=== PATIENT | female | born 1935 | race Caucasian/White ===

== ENCOUNTER 2016-11-04 10:19 | Emergency (ER) | payer MEDICARE ==
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
[2016-11-04] MEDS ORDERED: Acetaminophen TAB* 325 MG PO ONE (12:15)
[2016-11-04 12:33] VITALS: BP 143/64
--- NOTE | 2016-11-04 12:35 | RAD ---
INDICATION: Right hand injury. TECHNIQUE: 4 views of the right hand were obtained. FINDINGS: There is diffuse soft tissue swelling which is most prominent in the second finger and dorsal to the metacarpal heads. The second finger is flexed in all views. No fracture is seen. There is joint space narrowing hypertrophic and erosive change present in the distal interphalangeal joints most prominent in the second distal interphalangeal joint most consistent with an inflammatory arthropathy. IMPRESSION: 1. SOFT TISSUE SWELLING, NO FRACTURE IS SEEN. IF THE PATIENT'S SYMPTOMS PERSIST RECOMMEND FOLLOW-UP IMAGING. 2. FINDINGS MOST CONSISTENT WITH AN INFLAMMATORY ARTHROPATHY IN THE DISTAL INTERPHALANGEAL JOINTS.
== END 2016-11-04 13:20 | disposition home or self-care (01) ==
LOC: UCEAST 10:19
DX: S63.91XA Sprain of unspecified part of right wrist and hand, initial encounter (principal); W01.0XXA Fall on same level from slipping, tripping and stumbling without subsequent striking against object, initial encounter; Y93.K1 Activity, walking an animal; Y92.9 Unspecified place or not applicable; Y99.9 Unspecified external cause status; Z72.0 Tobacco use
CPT/HCPCS: 99212; A9270-GY; G0463

== ENCOUNTER 2017-03-30 18:07 | Emergency (ER) | payer SELFPAY ==
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
[2017-03-30] MEDS ORDERED: Ibuprofen TAB* 600 MG PO ONE (19:23)
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
[2017-03-30 20:15] VITALS: BP 147/73
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
== END 2017-03-30 20:32 | disposition home or self-care (01) ==
LOC: ED 18:07
DX: R07.9 Chest pain, unspecified (principal); M54.2 Cervicalgia; V89.2XXA Person injured in unspecified motor-vehicle accident, traffic, initial encounter; Y92.9 Unspecified place or not applicable; Z88.0 Allergy status to penicillin; I10 Essential (primary) hypertension; M06.9 Rheumatoid arthritis, unspecified; F17.210 Nicotine dependence, cigarettes, uncomplicated
CPT/HCPCS: 70450; 71250; 72125; 72128; 72131; 99282; A9270-GY

== ENCOUNTER 2017-04-03 19:38 | Emergency (ER) | payer MEDICARE ==
[2017-04-03 20:20] VITALS: BP 124/68
--- NOTE | 2017-04-03 20:49 | RAD ---
HISTORY: Fall with left shoulder pain COMPARISONS: None VIEWS: 5, Frontal internal rotation, external rotation, outlet, and axillary views of the left shoulder FINDINGS: BONE DENSITY: Normal. BONES: There is an oblique, minimally displaced fracture of the surgical neck of the left humerus and the greater tuberosity. JOINTS: There is no arthropathy. ALIGNMENT: There is no dislocation. SOFT TISSUES: Unremarkable. OTHER FINDINGS: None. IMPRESSION: COMMINUTED MINIMALLY DISPLACED FRACTURE OF THE PROXIMAL HUMERUS
[2017-04-03] MEDS: HYDROcodone/ACETAMIN 5-325 MG* 1 TAB PO ONE ×2 (21:28→21:49)
[2017-04-03] MEDS: Ibuprofen TAB* 600 MG PO ONE ×2 (21:29→21:50)
[2017-04-03] MEDS: oxyCODONE/Acetamin 5/325 MG* TAB PO ONE (21:33)
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
== END 2017-04-03 21:45 | disposition home or self-care (01) ==
LOC: UCEAST 19:38
DX: S42.252A Displaced fracture of greater tuberosity of left humerus, initial encounter for closed fracture (principal); W11.XXXA Fall on and from ladder, initial encounter; Y93.89 Activity, other specified; Y92.9 Unspecified place or not applicable; Y99.9 Unspecified external cause status; Z72.0 Tobacco use
CPT/HCPCS: 99213; A9270-GY; G0463

== ENCOUNTER 2018-09-17 18:48 | Emergency (ER) | payer MEDICARE ==
[2018-09-17 19:13] VITALS: BP 128/56
--- NOTE | 2018-09-17 19:22 | UC ---
Laceration HPI - HPI Summary HPI Summary: Triped and fell about an hour prior to arrival, lacerating her right wrist and sustaing 2 skin tears to the dorsum of the left hand. Takes a daily baby asprin but is uncertain of other meds, believes it is an anti -hypertensive medication. She has checked and her tetanus booster is up to date. ZNo other injury sustained in the fall--shoulder and elbow without pain and good range of motion. - History Of Current Complaint Chief Complaint: UCLaceration Stated Complaint: CUTS ON HANDS Time Seen by Provider: 09/17/18 19:15 Hx Obtained From: Patient Hx Last Menstrual Period: post Laceration Location: Wrist - right wrist Left hand Mechanism Of Injury: Blunt Trauma Onset/Duration: Sudden Onset Severity: Moderate Pain Intensity: 3 Aggravating Factors: Position Related History: Dominant Hand Right - Allergies/Home Medications Allergies/Adverse Reactions: Allergies Allergy/AdvReac Type Severity Reaction Status Date / Time Penicillins Allergy Hives Verified 09/17/18 19:17 PMH/Surg Hx/FS Hx/Imm Hx Previously Healthy: Yes Cardiovascular History: Hypertension - Surgical History Surgical History: Yes Surgery Procedure, Year, and Place: bilat eyes=cateracs. Pancreatic surgery. appendectomy, hysterectomy - Family History Known Family History: Positive: Cardiac Disease Family History: Prostate cancer - Social History Occupation: Retired Lives: Alone Alcohol Use: Daily Alcohol Amount: 1 glass of wine Substance Use Type: None Smoking Status (MU): Current Every Day Smoker Type: Cigarettes Amount Used/How Often: 1/2 PPD Household Exposure Type: Cigarettes Review of Systems All Other Systems Reviewed And Are Negative: Yes Constitutional: Positive: Negative Skin: Positive: Bruising - easy bruising due to aspirin Eyes: Positive: Negative ENT: Positive: Negative Respiratory: Positive: Negative Cardiovascular: Positive: Negative Musculoskeletal: Positive: Negative Neurological: Positive: Negative Psychological: Positive: Negative Physical Exam Triage Information Reviewed: Yes Appearance: Well-Appearing, Well-Nourished, Pain Distress - mild Vital Signs: Initial Vital Signs Temp 98.4 F 09/17/18 19:07 Pulse 64 09/17/18 19:07 Resp 16 09/17/18 19:07 BP 128/56 09/17/18 19:07 Pulse Ox 99 09/17/18 19:07 Respiratory: Positive: Lungs clear, Normal breath sounds Cardiovascular: Positive: RRR, No Murmur Musculoskeletal: Positive: ROM Intact - right shoulder, elbow and wrist Neurological Exam: Normal Psychological Exam: Normal Skin Exam: Other - laceration. Laceration Repair - Laceration Repair 1 Description: Stellate - 2 intersecting flaps volar surface of right wrist. Laceration Size After Repair: Length (cm) - 2, Width (mm) - 1 Contamination/FB Removal: removed 2 mm flap of debilitated skin Modified For Repair: Yes - removed tiny skin flap 2mm Anesthesia Used: 2.0% Lido Cleansing Completed Via Routine Prep: Yes Irrigation With Pressure Irrigation Device: Yes Closure Material: Sutures Closure Method: Single Layer Suture Of: Skin Suture Type: Prolene - 5-0 5 interrupted sutures, repairing 2 intersecting flaps 2 Description: Irregular Laceration Size After Repair: Length (cm) - 2, Width (mm) - 1 Modified For Repair: No Cleansing Completed Via Routine Prep: Yes Irrigation With Pressure Irrigation Device: Yes Closure Material: SteriStrips - steristrips applied to 2 triangular flap lacerations dorsum of left hand Laceration Course/Dx - Course/Dx Course Of Treatment: repair of lacerations, 1 with sutures, 2 with steristrips - Diagnosis Provider Diagnosis: Laceration of right wrist, Skin tear of left hand without complication Discharge - Sign-Out/Discharge Documenting (check all that apply): Patient Departure All imaging exams completed and their final reports reviewed: No Studies - Discharge Plan Condition: Good Disposition: HOME Patient Education Materials: Care For Your Stitches (ED), Laceration (ED), Steristrips (ED) Referrals: Gila Ruvalcaba MD [Primary Care Provider] - Additional Instructions: Monitor for any signs of infection: increasing pain or redness at the site of lacerations. Keep the wounds clean and dry, with return for removal of sutures in 7 days. Use acetaminophen 650mg every 6 hours as needed for pain. - Billing Disposition and Condition Condition: GOOD Disposition: Home
[2018-09-17] MEDS ORDERED: Lidocaine 2% PF * 5 ML VIAL INJ ONE (19:25)
== END 2018-09-17 20:15 | disposition home or self-care (01) ==
LOC: UCEAST 18:48
DX: S61.511A Laceration without foreign body of right wrist, initial encounter (principal); S61.412A Laceration without foreign body of left hand, initial encounter; W01.0XXA Fall on same level from slipping, tripping and stumbling without subsequent striking against object, initial encounter; Y92.9 Unspecified place or not applicable; I10 Essential (primary) hypertension; Z79.82 Long term (current) use of aspirin; Z88.0 Allergy status to penicillin; F17.210 Nicotine dependence, cigarettes, uncomplicated
CPT/HCPCS: 12001; 99212; G0463

== ENCOUNTER 2018-09-24 11:24 | Emergency (ER) | payer MEDICARE ==
--- NOTE | 2018-09-24 11:32 | UC ---
Laceration HPI - HPI Summary HPI Summary: 82 yo female presents for stitch removal. She had 5 sutures placed to her right hand on 09/17. She has had no issues with these and denies fever, pain, drainage , or redness to the site. - History Of Current Complaint Stated Complaint: STITCHES REMOVED Time Seen by Provider: 09/24/18 11:32 Hx Last Menstrual Period: post Laceration Location: Hand - Allergies/Home Medications Allergies/Adverse Reactions: Allergies Allergy/AdvReac Type Severity Reaction Status Date / Time Penicillins Allergy Hives Verified 09/24/18 11:53 PMH/Surg Hx/FS Hx/Imm Hx Cardiovascular History: Cardiac Disease, Hypertension - Surgical History Surgical History: Yes Surgery Procedure, Year, and Place: bilat eyes=cateracs. Pancreatic surgery. appendectomy, hysterectomy - Family History Known Family History: Positive: Cardiac Disease Family History: Prostate cancer - Social History Occupation: Retired Alcohol Use: Daily Alcohol Amount: 1 glass of wine Substance Use Type: None Smoking Status (MU): Current Every Day Smoker Type: Cigarettes Amount Used/How Often: 1/2 PPD Household Exposure Type: Cigarettes Review of Systems All Other Systems Reviewed And Are Negative: Yes Constitutional: Positive: Negative Skin: Positive: Other - Sutures right hand Respiratory: Positive: Negative Cardiovascular: Positive: Negative Neurovascular: Positive: Negative Neurological: Positive: Negative Psychological: Positive: Negative Physical Exam - Summary Physical Exam Summary: GENERAL: NAD. WDWN. No pain distress. SKIN: RIGHT WRIST: radial aspect with FIVE sutures in place. Wound healing well. No streaking, bleeding, or drainage. CHEST: No accessory muscle use. Breathing comfortably and in no distress. CV: Pulses intact. Cap refill <2seconds MSK: Right wrist: FROM without pain NEURO: Alert. PSYCH: Age appropriate behavior. Triage Information Reviewed: Yes Vital Signs: Vital Signs: Temp Pulse Resp BP Pulse Ox 98.0 F 57 18 124/69 100 09/24/18 11:48 09/24/18 11:48 09/24/18 11:48 09/24/18 11:48 09/24/18 11:48 Vital Signs Reviewed: Yes Laceration Course/Dx - Course/Dx Course Of Treatment: Five sutures removed without difficulty. Bandaged with a band-aid and advised to change band-aid daily. - Diagnosis Provider Diagnosis: Visit for suture removal Discharge - Sign-Out/Discharge Documenting (check all that apply): Patient Departure All imaging exams completed and their final reports reviewed: No Studies - Discharge Plan Condition: Stable Disposition: HOME Patient Education Materials: Stitches Removal (ED) Referrals: Gila Ruvalcaba MD [Primary Care Provider] - Additional Instructions: If you develop a fever, shortness of breath, chest pain, new or worsening symptoms - please call your PCP or go to the ED immediately. Change the band-aid daily until well healed - Billing Disposition and Condition Condition: STABLE Disposition: Home
[2018-09-24 11:52] VITALS: BP 124/69
== END 2018-09-24 11:55 | disposition home or self-care (01) ==
LOC: UCEAST 11:24
DX: Z48.02 Encounter for removal of sutures (principal); I11.9 Hypertensive heart disease without heart failure; F17.210 Nicotine dependence, cigarettes, uncomplicated

== ENCOUNTER 2019-05-25 09:04 | Day surgery (SDC) | payer MEDICARE ==
--- NOTE | 2019-05-19 12:21 | HP ---
PREOPERATIVE HISTORY AND PHYSICAL EXAM: DATE OF SURGERY/ADMISSION: 05/25/19 DATE OF OFFICE VISIT/ENCOUNTER: 05/06/19 ATTENDING SURGEON: Norma Beckwith MD ([place]).* (DICTATED BY DENIA MEJIA) PROCEDURE: Right wrist De Quervain's release, carpal tunnel release. HISTORY OF PRESENT ILLNESS: This is an 83-year-old female who complains of numbness and tingling in her right hand. She has tried a brace and it has been a little bit helpful. She has had symptoms ongoing for over 6 months and they are progressively worsening. Her fingers are tingling or numb most of the time. She does complain of pain at the radial aspect of her wrist. There was no specific injury. She had nerve conduction studies which showed bilateral moderate carpal tunnel syndrome and she has been diagnosed clinically with De Quervain's tenosynovitis. She would like to proceed with surgery for both of these problems. PAST MEDICAL HISTORY: 1. Hypertension. 2. Arthritis. 3. Depression/anxiety. 4. History of a pancreatic tumor. PAST SURGICAL HISTORY: Whipple procedure in 2010. CURRENT MEDICATIONS: 1. Aspirin 81 mg daily. 2. Bupropion HCl 100 mg 1 tab twice daily. 3. Centrum Silver daily. 4. Cimetidine 200 mg daily. 5. Citalopram hydrobromide 40 mg daily. 6. Ensure Original 3 times a day. 7. Fluticasone propionate 2 sprays each nostril daily. 8. Lisinopril 5 mg daily. 9. Meclizine HCl 25 mg q.8 hours p.r.n. vertigo. 10. Oxybutynin chloride 5 mg once a day p.r.n. incontinence. 11. Pantoprazole sodium daily. 12. Probiotic daily. ALLERGIES: PENICILLIN causes a rash. FAMILY MEDICAL HISTORY: Significant heart disease in sibling and mother, all from cardiac-related problems. Family medical history also includes hypertension, stroke, cancer. SOCIAL HISTORY: The patient lives alone. She does not work. She is a current smoker, she smokes approximately 4 cigarettes a day and has done so since her teenage years. She denies recreational drug use. She drinks alcohol on regular occasion, 1 or 2 glasses of wine daily. REVIEW OF SYSTEMS: Negative for general, cephalic, cardiovascular, respiratory , GI, , other musculoskeletal, integumentary, endocrine, neurologic, and hematologic symptoms. Infectious Disease: Negative for MRSA, hepatitis C, HIV. PHYSICAL EXAMINATION GENERAL: Well-developed, well-nourished 83-year-old female, in no acute distress. VITAL SIGNS: Height 5 feet 2 inches, weight 130 pounds, pulse rate 65, blood pressure 130/80. HEENT: Normocephalic and atraumatic. Pupils are equal, round, and reactive to light and accommodation. Extraocular movements are intact. Throat is clear. NECK: Supple. No palpable lymph nodes. PULMONARY: Lungs are clear to auscultation bilaterally. No wheezes, rales, or rhonchi. CARDIOVASCULAR: Regular rate and rhythm. S1 and S2. No murmurs, rubs, or gallops. ABDOMEN: Positive bowel sounds. Soft and nontender. NEUROLOGIC: Alert and oriented x3. Cranial nerves II through XII are intact. MUSCULOSKELETAL: On exam of her right wrist and hand, there is no some mild thenar wasting, she has weakness with thumb abduction. She has decreased sensation in the medial nerve distribution on the right and a positive Tinel sign at the median nerve. She has tenderness to palpation on the radial aspect of the right wrist, but no visible swelling. She has a positive Kitty's test at the median nerve. EMG nerve conduction study shows moderate carpal tunnel syndrome on the right. IMPRESSION: Right carpal tunnel syndrome and De Quervain's tenosynovitis. PLAN: The patient is scheduled to undergo a right wrist De Quervain's release and carpal tunnel release with Dr. Beckwith on 05/25/19. She will return to the office 10 days postop for followup and suture removal. A prescription for Tylenol with Codeine was e-scribed to her pharmacy for postoperative pain management. DENIA MEJIA [id number]/[facility] #: [id number] MTDJacoby
[~2019-05-25 09:04] MED LIST: Buffered Lidocaine 1% SYRIN* 1 ML/SYRINGE INTRADERM ONE; Lactated Ringers 1000 ML Bag* 1,000 ML IV SCH; Lidocaine 1% INJ* 10 MG/ML 30 ML SDV ONE
[2019-05-25] MEDS ORDERED: Ondansetron INJ* 2 MG/ML VIAL IV PRN (09:20)
[2019-05-25] MEDS ORDERED: Acetaminophen TAB* 325 MG PO PRN (09:20)
[2019-05-25] MEDS ORDERED: Naloxone* 0.4 MG/ML 1 ML VIAL IV PRN (09:20)
[2019-05-25] MEDS ORDERED: Levalbuterol 0.63MG/3ML NEB* UNIT OF USE INH PRN (09:20)
[2019-05-25] MEDS ORDERED: Midazolam* 1 MG/ML 2 ML VIAL (2 MG) ONE (10:20)
[2019-05-25] MEDS ORDERED: fentaNYL* 50 MCG/ML 2 ML VIAL (100 MCG VIAL) ONE (10:20)
[2019-05-25] MEDS ORDERED: Lidocaine 2% PF * 5 ML VIAL ONE (11:08)
[2019-05-25] MEDS ORDERED: Propofol* 10 MG/ML 20 ML BTL ONE (11:08)
[2019-05-25 12:13] VITALS: BP 129/59
--- NOTE | 2019-05-25 17:08 | OP ---
DATE OF OPERATION: 05/25/19 - [facility] DATE OF : 35 SURGEON: Norma Beckwith MD HOT STICK WORKER: DENIA Zapien ANESTHESIA: Local MAC. PRE-OP DIAGNOSES: 1. Right de Quervain's tenosynovitis. 2. Right carpal tunnel syndrome. POST-OP DIAGNOSES: 1. Right de Quervain's tenosynovitis. 2. Right carpal tunnel syndrome. OPERATIVE PROCEDURE: Right carpal tunnel release and right de Quervain's release. ESTIMATED BLOOD LOSS: Zero. TOURNIQUET TIME: About 15 minutes. INDICATIONS FOR PROCEDURE: Samina is an 83-year-old woman who has numbness and tingling in the median nerve distribution of her right hand and pain on the radial aspect of her right wrist consistent with de Quervain's tenosynovitis. She presents for Quervain's release and carpal tunnel release, both on the right. DESCRIPTION OF PROCEDURE: The patient was brought to the operating room, was given a sedation anesthetic and a local infiltration a total of 10 cc of 1% plain lidocaine split between the palm of the right hand and the radial aspect of the right wrist. The skin of her right upper extremity was prepped and draped in the usual sterile fashion. The upper extremity was exsanguinated and the tourniquet elevated to 250 mmHg. A longitudinal incision was made in the palm in line with the ring finger and we dissected through the subcutaneous tissue down to the transverse carpal ligament. The ligament was divided sharply with a knife and then more proximally with the scissors. The nerve was dissected free from the surrounding tissue and there was an area of significant compression at the mid portion of the ligament. The wound was irrigated and the skin edges reapproximated with 4-0 nylon suture. Next, a longitudinal incision was made on the radial aspect of the wrist and we dissected bluntly through the subcutaneous tissue. Branches of the radial sensory nerve were located and then retracted by the assistant director of admissions, Susan Hinson. The first dorsal compartment was incised longitudinally completely releasing the APL and EPB tendons, which were all in the same compartment. The wound was irrigated and the skin edges reapproximated with 4-0 nylon suture. The wounds were dressed with Xeroform, 4x4, Webril, and an Estevan wrap. The patient tolerated the procedure well and was brought to the recovery room in good condition. [id number]/[facility] #: [id number] NAUN
== END 2019-05-25 12:17 | disposition home or self-care (01) ==
LOC: OREAST 09:04
PROVIDERS: ATTEND Orthopaedic Surgery
DX: G56.01 Carpal tunnel syndrome, right upper limb (principal); M65.4 Radial styloid tenosynovitis [de Quervain]; I10 Essential (primary) hypertension; M19.90 Unspecified osteoarthritis, unspecified site; Z85.07 Personal history of malignant neoplasm of pancreas; F41.8 Other specified anxiety disorders; Z88.0 Allergy status to penicillin; F17.210 Nicotine dependence, cigarettes, uncomplicated
CPT/HCPCS: J2250; J2704; J3010